=== PATIENT | male | born 2000 | race African-American/Black ===

== ENCOUNTER 2024-05-27 10:16 | Day surgery (SDC) | payer OTHER, SELFPAY ==
[2024-05-27] VITALS (9 sets, daily range): BP systolic 122–143; BP diastolic 68–92; PULSE 60–78; RESP 12–20; TEMP 36.6–36.7; O2SAT 95–100; BMI 32.0
[2024-05-27] MEDS: LACTATED RINGERS 1,000 ML 42 ML IV (11:35)
[2024-05-27] MEDS: ACETAMINOPHEN 325 MG TABLET 975 MG PO (11:38)
--- NOTE | 2024-05-27 12:26 | PM.PREOP ---
Pre-operative Note Interval Note History & Physical reviewed/Exam performed by Physician: Yes Changes to H&P: No
--- NOTE | 2024-05-27 12:58 | SUR.PREOP ---
Block start time [1227] . Monitoring initiated and maintained throughout procedure. Oxygen and medications given per anesthesiologist instructions. Patient remained stable throughout procedure, no adverse reactions noted. Block end time [1247].
[2024-05-27] MEDS: CEFAZOLIN 2 GM/100 ML PREMIX 100 ML IV (13:21)
--- NOTE | 2024-05-27 13:36 | SUR.OPER ---
Prone on padded OR bed, head in foam head support, gel chest rolls, gel pad under knees, pillow under lower legs, toes free of pressure, arms secured on padded arm boards at <90 degrees abduction. Safety belt at thigh.
[2024-05-27] MEDS: BUPIVACAINE 0.25% (PF) 30 ML, EPINEPHrine 0.15 MG INJ (13:44)
--- NOTE | 2024-05-27 14:49 | PM.OP.1 ---
Operative Date/Time/Diagnoses Date of procedure: 05/27/24 Time of procedure: 13:00 Pre-op diagnosis: Right Achilles tendon rupture s86.011a Post-op diagnosis: same Procedure & Clinicians Procedure: Repair Achilles tendon rupture CPT code 74123, right Same procedure as scheduled: Yes Indications: The patient is a 23 year male sustained a right Achilles tendon rupture while playing soccer. He has an established gap and no plantar flexion with Casas test. He was counseled on surgical and nonsurgical options for Achilles tendon ruptures. Decision for surgery to restore length and power in this young active patient. The risks and benefits of the procedure have been discussed with the patient and given the opportunity to ask questions. The risks of surgery include but are not limited to infection, rerupture, persistence of pain, damage to nerves and blood vessels, posttraumatic arthritis, DVT, PE, cardiopulmonary complications and . The patient expressed a thorough understanding of the risks and benefits of surgery and has elected to proceed. Consent was signed in the office. Surgeon: Prerna Martin Click Yes if Unassisted: Yes Anesthesia Type: General, Peripheral nerve block and Local Operative Notes Findings: Complete rupture Achilles tendon midsubstance repaired then minimally invasive technique. Once completed plantar flexion with Casas test restored Closure Type: primary Prosthetic devices, grafts, tissues, transplants, or devices: Suture tape, Arthrex Estimated Blood Loss (mL): 5 Blood products transfused: none Tourniquet time (min): 35 Procedure in detail: The patient was seen in the preoperative area and the site of surgery marked informed consent confirmed. This was the right leg. Anesthesia team saw the patient and performed a preoperative regional block for postoperative pain control. The patient was then brought back to the operating room by the anesthesia team. The patient was positioned supine on operative table. General anesthesia was administered. Patient was then flipped to the prone position. All bony prominences well padded. A well-padded thigh tourniquet was placed. The lower extremity was prepped and draped in standard sterile fashion. A formal time-out procedure was performed confirming the patient's side and site of surgery administration of appropriate preoperative antibiotics. All were in agreement. Attention was turned to the posterior right leg. The Esmarch tourniquet was used for exsanguination and the tourniquet raised on the thigh to 250 mmHg. A small incision just medial to the midline on the Achilles tendon was drawn out. This was taken down through the skin subcutaneous tissue. The paratenon was then opened over the Achilles tendon midline the skin incision to keep these out of direct alignment with each other. Minimal flaps were raised. The midsubstance Achilles tendon rupture was exposed. Deep fasciotomy was completed to allow blood flow and reduce tension off the repair. The hematoma and rupture site were irrigated and debrided. The 2 tendons ends were mobilized and the pars jig from the Arthrex system for minimally invasive Achilles repair was inserted inside the paratenon and slid proximally along the Achilles tendon proximal stump. Passing needles were used to pass sutures 1 through 5. These were then pulled through out of the wound. They were in order again and the 2. Suture was then passed around the passing sutures twice and then through the loop on each side of the tendon and then these were pulled through creating a 1. Nonlocked stitch a 2. Locking stitch and 3. Nonlocked stitch. The same procedure was then performed on the distal stump this created 2 nonlocked and 1 locking stitch on either side of the rupture. The foot was then brought into approximately 20? plantar flexion and the proximal stump was adequately mobilized to allow approximation of the ends. These were tied down in 20? of plantar flexion. The repair site was oversewn with 0 Vicryl suture. The wound was then irrigated. The paratenon was closed with 3-0 PDS. The tourniquet was released. Hemostasis was achieved. The subcutaneous suture was done with 4-0 Monocryl and 3-0 nylon suture placed in the skin. A well-padded splint was placed in plantar flexion. The drapes removed the patient was woken from anesthesia and taken to recovery room in good condition. There no immediate complications from this procedure. All counts were correct. Complications: none Post-operative Condition: stable Disposition: PACU Plan for aftercare: Nonweightbearing x2 weeks. Aspirin for DVT prophylaxis 325 mg daily x6 weeks. We will follow up in [facility] in 2 weeks for suture removal and initiation of the early mobilization weight-bearing protocol in a boot with heel lifts.
[2024-05-27] MEDS: OXYCODONE IR 5 MG TABLET PO ×2 (14:52→16:18)
== END 2024-05-27 16:20 | disposition home or self-care (01) ==
PROVIDERS: PCP Nurse Practitioner Family; Referring Provider Orthopaedic Surgery Foot and Ankle Surgery; Visit Provider Orthopaedic Surgery Foot and Ankle Surgery
PROC: (CPT 27650; principal; 2024-05-27 12:00)
DX: S86.011A Strain of right Achilles tendon, initial encounter (principal); G89.18 Other acute postprocedural pain; Y93.66 Activity, soccer
CPT/HCPCS: 27650; 64450; J0171; J0690; J1100; J1885; J2250; J2405; J2704; J3010